=== PATIENT | male | born 1985 | race Caucasian/White ===

== ENCOUNTER 2017-12-24 18:54 | Emergency (ER) | payer BC ==
[~2017-12-24] VITALS: Ht 177.8 cm; Wt 105.7 kg
[2017-12-24 19:04] VITALS: Ht 177.8 cm; Wt 105.7 kg
[2017-12-24 21:50] VITALS: BP 137/84
== END 2017-12-24 21:40 | disposition home or self-care (01) ==
LOC: ED 18:54
DX: M54.12 Radiculopathy, cervical region (principal)
CPT/HCPCS: J2270; Q0092; Q0162